=== PATIENT | female | born 2000 | race Caucasian/White ===

== ENCOUNTER 2023-02-13 02:17 | Emergency (ER) | payer OTHER, MEDICAID ==
[~2023-02-13] VITALS: Ht 166.4 cm; Wt 104.4 kg
[2023-02-13 02:38] VITALS: TEMP 97.9; O2SAT 98
[2023-02-13] MEDS ORDERED: KETOROLAC 30MG/ML VIAL IV STA (03:55)
[2023-02-13 04:20] LABS: BASOPHILS % 0.6 % (0.0-2.0); EOSINOPHILS % 0.2 % (0.0-5.0); HEMATOCRIT. 36.2 % (36.0-48.0); HEMOGLOBIN. 12.2 g/dL (12.0-16.0); LYMPHOCYTES % 20.3 % (20.0-50.0); MEAN CORPUSCULAR HEMOGLOBIN 28.1 pg (28.0-32.0); MEAN CORPUSCULAR HGB CONC 33.7 g/dL (31.0-37.0); MEAN CORPUSCULAR VOLUME 83.2 fL (81.0-99.0); MEAN PLATELET VOLUME 8.4 fl (7.4-10.4); NEUTROPHILS % 72.9 % (40.0-76.0); PLATELET 300 x1000/uL (130-400); RED BLOOD CELL COUNT 4.35 mill/uL (4.2-5.4); RED CELL DISTRIBUTION WIDTH 14.4 % (11.6-14.6); WHITE BLOOD COUNT 11.1 x1000/uL (4.5-11.0)
[2023-02-13 04:36] LABS: HCG SCREEN NEGATIVE
[2023-02-13 04:37] LABS: CHLORIDE 115 mEq/L (98-107); INDEX HEMOLYSI 1 (1-3); INDEX ICTERIC 1 (1-4); INDEX LIPEMIC 1 (1-3); POTASSIUM 3.7 mEq/L (3.5-5.1); SODIUM 143 mEq/L (136-145)
[2023-02-13 04:44] LABS: CALCIUM 8.6 mg/dL (8.5-10.1); CARBON DIOXIDE 26 mEq/L (21-32); CREATININE 0.6 mg/dL (0.6-1.3); GLUCOSE 102 mg/dL (70-105); UREA NITROGEN BLOOD 13 mg/dL (7-21)
[2023-02-13] MEDS ORDERED: IBUP-2029 MT (05:20)
[2023-02-13 05:44] VITALS: BP 125/86; PULSE 110; RESP 16
[2023-02-13] MEDS ORDERED: KETOROLAC 30MG/ML VIAL IV NR (05:45)
[2023-02-13] MEDS ORDERED: IOHEXOL-300 100 ML BOTTLE ONE (06:57)
== END 2023-02-13 07:37 | disposition home or self-care (01) ==
LOC: ER 02:17
DX: R10.30 Lower abdominal pain, unspecified (principal)
CPT/HCPCS: 80048; 84703; 85025; 36415; 71045; 74177; 96374; 99285; Q9967; J1885; Z7610